=== PATIENT | male | born 1970 | race Caucasian/White ===

== ENCOUNTER 2022-09-03 00:29 | Emergency (ER) | payer OTHER ==
[~2022-09-03] VITALS: Ht 182 cm; Wt 107.9 kg
--- NOTE | 2022-09-03 00:37 | ED GI ---
General Stated Complaint: BOWL OBSTRUCTION History of Present Illness Date Seen by Provider: Sep 03, 2022 Time Seen by Provider: 00:37 Initial Comments 52-year-old male with PMH of DM2 on metformin (patient does not take his metformin regularly)/HTN (noncompliant with meds)/ chronic constipation, is here with c/o constipation for the past 4 days, and pt c/o lower abdominal pain, with a hard lump in the LLQ. Pt tried a fleet enema which helped very little. It is common for pt to have constipation for 3 to 4days. Denies fever and chills, stomach issues, chest pain.. Allergies and Home Medications Allergies Coded Allergies: No Known Drug Allergies (Unverified , 09/03/22) Patient Home Medication List Home Medication List Reviewed: Yes Review of Systems Review of Systems Constitutional: no symptoms reported EENTM: No Symptoms Reported Respiratory: No Symptoms Reported Cardiovascular: No Symptoms Reported Gastrointestinal: Abdominal Pain, Constipated, Poor Appetite Genitourinary: No Symptoms Reported Musculoskeletal: no symptoms reported Skin: no symptoms reported Psychiatric/Neurological: No Symptoms Reported Endocrine: No Symptoms Reported Hematologic/Lymphatic: No Symptoms Reported Physical Exam Vital Signs Vital Signs - First Documented 09/03/22 00:51 Temp 36.3 Pulse 97 Resp 18 B/P (MAP) 125/87 (100) O2 Delivery Room Air Capillary Refill : Height/Weight/BMI Height: '" Weight: lbs. oz. kg; BMI Method: General Appearance: mild distress HEENT: PERRL/EOMI Neck: full range of motion Respiratory: chest non-tender, lungs clear, normal breath sounds Cardiovascular: regular rate, rhythm Gastrointestinal: normal bowel sounds, no organomegaly, tenderness (in the LLQ and RLQ), mass (Hard mass palpated in the LLQ) Extremities: normal range of motion Back: no CVA tenderness Neurologic/Psychiatric: alert, normal mood/affect, oriented x 3 Skin: normal color Focused Exam Lactate Level 09/03/22 01:00: Lactic Acid Level 1.75 Lactic Acid Level Laboratory Tests Test 09/03/22 01:00 Lactic Acid Level 1.75 MMOL/L (0.50-2.00) Progress/Results/Core Measures Results/Orders Lab Results Laboratory Tests Test 09/03/22 01:00 09/03/22 02:10 Range/Units White Blood Count 5.7 4.3-11.0 10^3/uL Red Blood Count 4.75 4.30-5.52 10^6/uL Hemoglobin 14.6 13.3-17.7 g/dL Hematocrit 42 40-54 % Mean Corpuscular Volume 88 80-99 fL Mean Corpuscular Hemoglobin 31 25-34 pg Mean Corpuscular Hemoglobin Concent 35 32-36 g/dL Red Cell Distribution Width 12.3 10.0-14.5 % Platelet Count 199 130-400 10^3/uL Mean Platelet Volume 9.9 9.0-12.2 fL Immature Granulocyte % (Auto) 0 % Neutrophils (%) (Auto) 67 42-75 % Lymphocytes (%) (Auto) 26 12-44 % Monocytes (%) (Auto) 6 0-12 % Eosinophils (%) (Auto) 1 0-10 % Basophils (%) (Auto) 1 0-10 % Neutrophils # (Auto) 3.8 1.8-7.8 10^3/uL Lymphocytes # (Auto) 1.5 1.0-4.0 10^3/uL Monocytes # (Auto) 0.3 0.0-1.0 10^3/uL Eosinophils # (Auto) 0.1 0.0-0.3 10^3/uL Basophils # (Auto) 0.0 0.0-0.1 10^3/uL Immature Granulocyte # (Auto) 0.0 0.0-0.1 10^3/uL Sodium Level 135 135-145 MMOL/L Potassium Level 3.9 3.6-5.0 MMOL/L Chloride Level 99 98-107 MMOL/L Carbon Dioxide Level 23 21-32 MMOL/L Anion Gap 13 5-14 MMOL/L Blood Urea Nitrogen 8 7-18 MG/DL Creatinine 0.57 L 0.60-1.30 MG/DL Estimat Glomerular Filtration Rate 118 BUN/Creatinine Ratio 14 Glucose Level 332 H 70-105 MG/DL Lactic Acid Level 1.75 0.50-2.00 MMOL/L Calcium Level 9.6 8.5-10.1 MG/DL Corrected Calcium 9.5 8.5-10.1 MG/DL Total Bilirubin 0.5 0.1-1.0 MG/DL Aspartate Amino Transf (AST/SGOT) 26 5-34 U/L Alanine Aminotransferase (ALT/SGPT) 22 0-55 U/L Alkaline Phosphatase 134 40-136 U/L Total Protein 7.2 6.4-8.2 GM/DL Albumin 4.1 3.2-4.5 GM/DL Urine Color YELLOW Urine Clarity CLEAR Urine pH 7.0 5-9 Urine Specific [place] 1.010 L 1.016-1.022 Urine Protein NEGATIVE NEGATIVE Urine Glucose (UA) 3+ H NEGATIVE Urine Ketones TRACE H NEGATIVE Urine Nitrite NEGATIVE NEGATIVE Urine Bilirubin NEGATIVE NEGATIVE Urine Urobilinogen 0.2 < = 1.0 MG/DL Urine Leukocyte Esterase NEGATIVE NEGATIVE Urine RBC (Auto) NEGATIVE NEGATIVE Urine RBC NONE /HPF Urine WBC RARE /HPF Urine Squamous Epithelial Cells RARE /HPF Urine Crystals NONE /LPF Urine Bacteria NEGATIVE /HPF Urine Casts NONE /LPF Urine Mucus SMALL H /LPF Urine Culture Indicated NO Urine Opiates Screen NEGATIVE NEGATIVE Urine Oxycodone Screen NEGATIVE NEGATIVE Urine Methadone Screen NEGATIVE NEGATIVE Urine Propoxyphene Screen NEGATIVE NEGATIVE Urine Barbiturates Screen NEGATIVE NEGATIVE Ur Tricyclic Antidepressants Screen NEGATIVE NEGATIVE Urine Phencyclidine Screen NEGATIVE NEGATIVE Urine Amphetamines Screen NEGATIVE NEGATIVE Urine Methamphetamines Screen NEGATIVE NEGATIVE Urine Benzodiazepines Screen NEGATIVE NEGATIVE Urine Cocaine Screen NEGATIVE NEGATIVE Urine Cannabinoids Screen NEGATIVE NEGATIVE My Orders Orders - NASH MAC MD Cbc With Automated Diff (09/03/22 00:37) Comprehensive Metabolic Panel (09/03/22 00:37) Drug Screen Stat (Urine) (09/03/22 00:37) Lactic Acid Analyzer (09/03/22 00:37) Ua Culture If Indicated (09/03/22 00:37) Ct Abdomen/Pelvis W (09/03/22 00:38) Ed Iv/Invasive Line Start (09/03/22 01:08) Ns Iv 1000 Ml (Sodium Chloride 0.9%) (09/03/22 01:08) Iohexol Injection (Omnipaque 350 Mg/Ml 1 (09/03/22 01:30) Received Contrast (Hold Metformin- Contr (09/03/22 01:30) Sodium Chloride Flush (Catheter Flush Sy (09/03/22 01:30) Ns (Ivpb) (Sodium Chloride 0.9% Ivpb Bag (09/03/22 01:30) Na Phos/Na Biphos Enema (Fleet Enema Christiano (09/03/22 01:45) Ketorolac Injection (Toradol Injection) (09/03/22 02:00) Medications Given in ED Current Medications Medications Dose Ordered Sig/Yulisa Route Start Time Stop Time Status Last Admin Dose Admin Iohexol 100 ml ONCE ONCE IV 09/03/22 01:30 09/03/22 01:31 DC 09/03/22 01:45 80 ML Ketorolac Tromethamine 15 mg ONCE ONCE IVP 09/03/22 02:00 09/03/22 02:01 DC 09/03/22 02:08 15 MG Sodium Chloride 10 ml NEEDED PRN IV 09/03/22 01:30 09/03/22 01:45 10 ML Sodium Chloride 100 ml ONCE ONCE IV 09/03/22 01:30 09/03/22 01:31 DC 09/03/22 01:45 100 ML Vital Signs/I&O 09/03/22 00:51 Temp 36.3 Pulse 97 Resp 18 B/P (MAP) 125/87 (100) O2 Delivery Room Air Progress Progress Note : Progress Note 1. ABDOMINAL PAIN: CONSTIPATION: - CT ABD: The colon is distended containing a moderate to large amount of stool. There is a large amount of stool in the rectum. Diverticulosis. The urinary bladder is markedly distended. The liver is enlarged and may be due to fatty infiltration spleen is mildly enlarged.No obstruction - CBC/ CMP: - Lactic acid: - UA/ UDS: negative - NS IVF bolus - Toradol 15mg iv STAT - Fleet enema STAT - Miralax/ Colace STAT - Advised adequate water intake of at least 8 glasses a day, high fiber diet. -Prescription given for MiraLAX, Colace, Fleet enemas - Follow up with PCP within the next 7 days and also general surgery clinic (Dr Argueta) as needed. -The patient was seen in the ED, and treated appropriately to presentation at a specific point in time. Patient is informed that there is a possibility that disease and illness can evolve and change in acuity rapidly or slowly after patient is discharged from the ER. Precautionary advice given to the patient for immediate return to ER if symptoms worsen or do not resolve, and to seek emergency care sooner rather than later. Pt also advised on the importance of PCP follow up and compliance with management and follow up plan with PCP and/or specialist, as this is part of the management plan. Pt verbally expressed understanding. Diagnostic Imaging Diagonstic Imaging: CT Plain Films/CT/US/NM/MRI: abdomen Departure Impression Primary Impression: Constipation Qualified Codes: K59.00 - Constipation, unspecified Disposition: HOME, SELF-CARE Condition: Stable Departure-Patient Inst. Referrals: JULIAN ARGUETA MD Patient Instructions: Constipation, Adult (DC), Constipation, Adult ED Add. Discharge Instructions: - Advised adequate water intake of at least 8 glasses a day, high fiber diet. -Prescription given for MiraLAX, Colace, Fleet enemas - Follow up with PCP within the next 7 days and also general surgery clinic (Dr Argueta) as needed. Scripts Na Phos,M-B/Na Phos,Di-Ba (Fleet Enema) 19 Gram-7 Gram/118 Ml Enema 133 ML RC DAILY for 2 Days, #2 EA Prov: NASH MAC MD 09/03/22 Docusate Sodium (Colace) 100 Mg Capsule 100 MG PO TID for 7 Days, #21 CAP Prov: NASH MAC MD 09/03/22 Polyethylene Glycol 3350 (Miralax) 17 Gram Powd.pack 17 GM PO DAILY for 5 Days, #5 EACH Prov: NASH MAC MD 09/03/22 NASH MAC MD Sep 03, 2022 00:37
[2022-09-03 01:08] LABS: BASOPHILS % (AUTO) 1 % (0-10); EOSINOPHILS # (AUTO) 0.1 10^3/uL (0.0-0.3); EOSINOPHILS % (AUTO) 1 % (0-10); HEMATOCRIT 42 % (40-54); HEMOGLOBIN 14.6 g/dL (13.3-17.7); LYMPHOCYTES # (AUTO) 1.5 10^3/uL (1.0-4.0); LYMPHOCYTES % (AUTO) 26 % (12-44); MEAN CORPUSCULAR HEMOGLOBIN 31 pg (25-34); MEAN CORPUSCULAR HGB CONC 35 g/dL (32-36); MEAN CORPUSCULAR VOLUME 88 fL (80-99); MEAN PLATELET VOLUME 9.9 fL (9.0-12.2); MONOCYTES # (AUTO) 0.3 10^3/uL (0.0-1.0); MONOCYTES % (AUTO) 6 % (0-12); NEUTROPHILS # (AUTO) 3.8 10^3/uL (1.8-7.8); NEUTROPHILS % (AUTO) 67 % (42-75); PLATELET COUNT 199 10^3/uL (130-400); WHITE BLOOD COUNT 5.7 10^3/uL (4.3-11.0)
[2022-09-03] MEDS ORDERED: NS IV 1000 ML 1,000 ML IV STA (01:08)
[2022-09-03] MEDS ORDERED: NS 100 ML (IVPB) BAG IV ONE (01:30)
[2022-09-03] MEDS ORDERED: HOLD METFORMIN - RECEIVED CONTRAST 20 ML VIAL IV SCH (01:30)
[2022-09-03] MEDS ORDERED: CATHETER FLUSH 10 ML SYR IV PRN (01:30)
[2022-09-03] MEDS ORDERED: IOHEXOL 350 MG/ML 100 ML (OMNIPAQUE 350) VIAL IV ONE (01:30)
[2022-09-03 01:32] LABS: ALBUMIN 4.1 GM/DL (3.2-4.5); BILIRUBIN,TOTAL 0.5 MG/DL (0.1-1.0); CALCIUM 9.6 MG/DL (8.5-10.1); CREATININE SERUM 0.57 MG/DL (0.60-1.30); POTASSIUM 3.9 MMOL/L (3.6-5.0); TOTAL PROTEIN 7.2 GM/DL (6.4-8.2)
[2022-09-03] MEDS ORDERED: FLEET ENEMA ADULT 1 EA BTL PR ONE (01:45)
[2022-09-03] MEDS ORDERED: KETOROLAC 15 MG/ML VIAL IVP ONE (02:00)
[2022-09-03 02:21] LABS: BILIRUBIN,URINE NEGATIVE (NEGATIVE); CLARITY,URINE CLEAR; COLOR,URINE YELLOW; GLUCOSE, URINE (UA) 3+ (NEGATIVE); KETONES,URINE TRACE (NEGATIVE); LEUKOCYTE ESTERASE ,URINE NEGATIVE (NEGATIVE); NITRITE,URINE NEGATIVE (NEGATIVE); PROTEIN,URINE NEGATIVE (NEGATIVE)
[2022-09-03 02:27] LABS: BACTERIA,URINE NEGATIVE /HPF; SQUAMOUS EPITHELIAL CELL,UR RARE /HPF; WBC,URINE RARE /HPF
[2022-09-03 02:30] LABS: AMPHETAMINE SCREEN, URINE NEGATIVE (NEGATIVE); BARBITURATE SCREEN URINE NEGATIVE (NEGATIVE); BENZODIAZEPINES SCREEN URINE NEGATIVE (NEGATIVE); CANNABINOID SCREEN, URINE NEGATIVE (NEGATIVE); COCAINE SCREEN URINE NEGATIVE (NEGATIVE); METHADONE STAT NEGATIVE (NEGATIVE); OPIATE SCREEN URINE NEGATIVE (NEGATIVE); OXYCODONE STAT NEGATIVE (NEGATIVE); PROPOXYPHENE STAT NEGATIVE (NEGATIVE); TRICYCLIC ANTIDEPRESSANTS SCRE NEGATIVE (NEGATIVE)
[2022-09-03] MEDS ORDERED: DOCUSATE SODIUM 100 MG (COLACE) CAP PO ONE (03:30)
[2022-09-03] MEDS ORDERED: polyethylene glycoL POWDER 17 GM (MIRALAX) PACK PO ONE (03:30)
[2022-09-03] MEDS ORDERED: DOCU-143 PO (03:31)
[2022-09-03] MEDS ORDERED: POLY17PO6 PO (03:31)
[2022-09-03] MEDS ORDERED: NA P133E22 RC (03:31)
[2022-09-03 04:15] VITALS: BP 125/87
[2022-09-03] MEDS ORDERED: FLEET ENEMA ADULT 1 EA BTL ONE (04:36)
--- NOTE | 2022-09-03 06:23 | Diagnostic Imaging Report ---
PROCEDURE: CT abdomen and pelvis with contrast. TECHNIQUE: Multiple contiguous axial images were obtained through the abdomen and pelvis after administration of intravenous contrast. Auto Exposure Controls were utilized during the CT exam to meet ALARA standards for radiation dose reduction. All CT scans use one or more of the following dose optimizing techniques: automated exposure control, MA and/or KvP adjustment based on patient size and exam type or iterative reconstruction. INDICATION: Scrotal pain, suspicion for bowel obstruction. No priors. FINDINGS: There is mild fatty hepatomegaly and mild splenomegaly. There is some fatty infiltration of the nonacute and nonfocal pancreas. There is no hydroureteronephrosis and no radiodense urinary tract calculi. Noninflamed fatty umbilical hernia. Urinary bladder is distended but non-thickened to the level of the umbilicus. There is an elevated fecal load in the colon with the rectal vault mildly distended at 7.4 cm. No perirectal edema. No small bowel dilatation or air-fluid levels. No pneumatosis or free gas. There is no appendicitis or diverticulitis. There is a normal appendix well visualized. No mesenteric or retroperitoneal lymphadenopathy. The aortoiliac vessels patent and nonaneurysmal. No mesenteric thrombus identified. IMPRESSION: 1. Colonic constipation. Mild rectal impaction not excluded but no amy obstructive features. 2. Urinary bladder distention without hydronephrosis or urinary tract stone. 3. Mild fatty hepatomegaly and borderline splenomegaly. 4. Fatty umbilical hernia noninflamed. Dictated by: Dictated on workstation # [id number]
== END 2022-09-03 04:16 | disposition home or self-care (01) ==
LOC: ER FS 00:38
DX: K59.00 Constipation, unspecified (principal); N32.89 Other specified disorders of bladder; K57.30 Diverticulosis of large intestine without perforation or abscess without bleeding; R16.1 Splenomegaly, not elsewhere classified; R16.0 Hepatomegaly, not elsewhere classified; E11.9 Type 2 diabetes mellitus without complications; Z79.84 Long term (current) use of oral hypoglycemic drugs; Z28.310 Unvaccinated for COVID-19
CPT/HCPCS: 36415; 74177; 80053; 80306; 81000; 83605; 85025